=== PATIENT | female | born 1990 | race Two or more races ===

== ENCOUNTER 2022-04-09 17:31 | Emergency (ER) | payer BC ==
[~2022-04-09] VITALS: Ht 162.6 cm; Wt 74.8 kg
--- NOTE | 2022-04-09 17:50 | NUR ---
PATIENT BIB FRIEND C/O L SIDED NUMBNESS, BLURRED VISION ON L EYE, AND CONGESTION. PLACED ON MONITOR. SAFETY PRECAUTIONS IN PLACE. AWAITING TO BE SEEN BY .
--- NOTE | 2022-04-09 18:02 | NUR ---
PATIENT TAKEN TO CT
--- NOTE | 2022-04-09 18:18 | NUR ---
UA COLLECTED AND SENT TO LAB
[2022-04-09 18:46] LABS: BILIRUBIN,URINE NEGATIVE (NEGATIVE); COLOR,URINE YELLOW (YELLOW); LEUKOCYTE ESTERASE ,URINE TRACE (NEGATIVE); NITRITE, URINE NEGATIVE (NEGATIVE); PROTEIN,URINE NEGATIVE (NEGATIVE); UGLUCOSE NEGATIVE (NEGATIVE); UROBILINOGEN,URINE 0.2 EU/dL (0.2)
[2022-04-09 19:02] LABS: BACTERIA,URINE Few /HPF (None Seen); RBC,URINE 0-2 /HPF (0-2); SQUAMOUS EPITHELIAL CELL,UR Many /HPF (None Seen)
[2022-04-09 19:03] LABS: ALANINE AMINOTRANSFERASE 16 U/L (12-78); ALBUMIN 4.7 g/dL (3.4-5.0); ALCOHOL, BLOOD < 3 mg/dL (0-0); ALKALINE PHOSPHATASE 59 U/L (46-116); ASPARTATE AMINOTRANSFERASE 13 U/L (15-37); BILIRUBIN,DIRECT 0.2 mg/dL (0.0-0.2); BILIRUBIN,TOTAL 0.7 mg/dL (0.2-1.0); CALCIUM, SERUM 9.4 mg/dL (8.5-10.1); CARBON DIOXIDE 29 mmol/L (21-32); CHLORIDE 102 mmol/L (98-107); CREATININE 0.7 mg/dL (0.6-1.3); GLUCOSE 107 mg/dL (74-106); SODIUM SERUM 139 mmol/L (136-145); TOTAL PROTEIN, SERUM 7.9 g/dL (6.4-8.2); UREA NITROGEN, BLOOD 10 mg/dL (7-18)
[2022-04-09 19:04] LABS: THYROID STIMULATING HORMONE 1.222 uIU/mL (0.358-3.74)
[2022-04-09 19:05] LABS: ACETAMINOPHEN < 0 ug/ml (10-30)
[2022-04-09 19:32] LABS: BASOPHILS % (AUTO) 0.9 % (0.0-2.0); EOSINOPHILS % (AUTO) 1.9 % (0.0-6.0); HEMATOCRIT 39 % (33-45); HEMOGLOBIN 13.3 g/dL (11.5-14.8); LYMPHOCYTES # (AUTO) 1.7 K/uL (0.8-4.8); LYMPHOCYTES % (AUTO) 32.2 % (20.0-44.0); MEAN CORPUSCULAR HGB CONC 34 g/dl (31.0-36.0); MEAN CORPUSCULAR VOLUME 91 fL (82-100); MONOCYTES # (AUTO) 0.3 K/uL (0.1-1.30); MONOCYTES % (AUTO) 5.5 % (2.0-12.0); NEUTROPHILS # (AUTO) 3.1 K/uL (1.8-8.9); NEUTROPHILS % (AUTO) 59.5 % (43.0-81.0); PLATELET COUNT (AUTO) 261 K/uL (150-450); RED BLOOD CELL COUNT(AUTO) 4.26 MIL/uL (4.0-5.2); WHITE BLOOD COUNT (AUTO) 5.2 K/uL (4.3-11.0)
[2022-04-09 19:54] VITALS: BP 129/70
[2022-04-09] MEDS ORDERED: SULF1TAB48 PO (19:55)
--- NOTE | 2022-04-09 20:11 | NUR ---
Patient discharged to home in stable condition. Written and verbal after care instructions given. Patient verbalizes understanding of instruction.
== END 2022-04-09 20:11 | disposition home or self-care (01) ==
LOC: ER 17:43
DX: R20.2 Paresthesia of skin (principal); N39.0 Urinary tract infection, site not specified; Z79.899 Other long term (current) drug therapy
CPT/HCPCS: 36415; 70450-TC; 80048-TC; 80076-TC; 81001; 84443-TC; 84703-TC; 85025-TC; 87086-TC; G0480